=== PATIENT | female | born 1970 | race Caucasian/White ===

== ENCOUNTER → 2017-09-30 | Outpatient (CLI) | payer OTHER, MEDICARE ==
[~2017-09-30] MED LIST: CIPR500 PO; HYDACE5 PO; KEPPRA XR750 MG PO; Keppra1000 MG PO; MEDR10 PO; OXCA300 PO; PRED20 PO; PREN-16 PO; Percocet 5-3251 EACH PO; [UNRECOGNIZED DRUG - OTHER]; triliptal; vitamin k
== END | disposition home or self-care (01) ==
LOC: LAB SHORT 12:53 → LAB EV 12:53
DX: J02.9 Acute pharyngitis, unspecified (principal)
CPT/HCPCS: 87070

== ENCOUNTER 2017-10-10 19:30 | Emergency (ER) | payer OTHER, MEDICARE ==
[~2017-10-10] VITALS: Ht 162.6 cm; Wt 84.4 kg
== END 2017-10-10 20:09 | disposition left against medical advice (07) ==
LOC: ER 19:30
DX: Z53.21 Procedure and treatment not carried out due to patient leaving prior to being seen by health care provider (principal)

== ENCOUNTER → 2017-11-12 | Outpatient (CLI) | payer OTHER, MEDICARE ==
[2017-11-13 11:23] LABS: Campylobacter Sp Not Detected (NOT DETECT); Plesiomonas Shigelloides Not Detected (NOT DETECT); Salmonella Sp Not Detected (NOT DETECT)
[2017-11-13 11:24] LABS: Adenovirus F 40/41 Not Detected (NOT DETECT); Astrovirus Not Detected (NOT DETECT); Cryptosporidium Not Detected (NOT DETECT); Cyclospora Cayetanensis Not Detected (NOT DETECT); E. Coli O157 Not Detected (NOT DETECT); Entamoeba Histolytica Not Detected (NOT DETECT); Enteroaggregative E. coli-EAEC Not Detected (NOT DETECT); Enteropathogenic E. coli-EPEC Not Detected (NOT DETECT); Enterotoxigenic E. coli-ETEC Not Detected (NOT DETECT); Giardia Lamblia Not Detected (NOT DETECT); Norovirus GI/GII Not Detected (NOT DETECT); Rotavirus A Not Detected (NOT DETECT); Sapovirus Not Detected (NOT DETECT); Shiga Toxin-prod E. coli-STEC Not Detected (NOT DETECT); Shigella/Enteroin E. coli-EIEC Not Detected (NOT DETECT); Vibrio Cholerae Not Detected (NOT DETECT); Vibrio Sp Not Detected (NOT DETECT); Yersinia Enterocolitica Not Detected (NOT DETECT)
== END | disposition home or self-care (01) ==
LOC: LAB EV 19:43 → LAB SHORT 19:43
PROVIDERS: Family Medicine
DX: R19.7 Diarrhea, unspecified (principal)
CPT/HCPCS: 87507

== ENCOUNTER → 2017-12-05 | Outpatient (CLI) | payer OTHER, MEDICARE | LOC: LAB SHORT 15:57 → LAB EV 15:57 | DX: J02.9 Acute pharyngitis, unspecified (principal) | CPT/HCPCS: 87070 ==

== ENCOUNTER → 2018-01-20 | Outpatient (CLI) | payer OTHER, MEDICARE ==
[~2018-01-20] MED LIST changes: +AMOUR PO; +CHOL10002; +Hair, Skin & N1 EACH PO; +PROGESTERONE CREAM TOP; +[UNRECOGNIZED DRUG - OTHER]; +[UNRECOGNIZED DRUG - OTHER] PO
== END | disposition home or self-care (01) ==
LOC: LAB EV 18:55 → LAB SHORT 18:55
DX: R30.0 Dysuria (principal)
CPT/HCPCS: 87077; 87086; 87186

== ENCOUNTER 2018-06-16 18:56 | Emergency (ER) | payer OTHER, MEDICARE ==
[~2018-06-16] VITALS: Ht 162.6 cm; Wt 90.7 kg
[2018-06-16] MEDS ORDERED: Norco 5-325 Ta1 EACH PO (20:01)
[2018-06-16] MEDS ORDERED: Vibramycin100 MG PO (20:01)
[2018-06-21] MEDS ORDERED: CRINONE1.125 GM VAG (14:02)
[2018-06-21] MEDS ORDERED: Trileptal600 MG PO (14:02)
[2018-06-21] MEDS ORDERED: VAGIFEM10 MCG VAG (14:02)
[2018-06-21] MEDS ORDERED: Keppra1000 MG PO (14:02)
[2018-06-21] MEDS ORDERED: PROM25 PO (14:03)
[2018-06-21] MEDS ORDERED: HYDR1TAB94 PO (14:03)
[2018-06-21] MEDS ORDERED: Armour Thyroid120 MG PO (14:03)
== END 2018-06-16 20:15 | disposition home or self-care (01) ==
LOC: ER 18:56 → EDSTATUS 18:56 → ER 20:15
DX: S02.32XA Fracture of orbital floor, left side, initial encounter for closed fracture (principal); S02.2XXA Fracture of nasal bones, initial encounter for closed fracture; H11.32 Conjunctival hemorrhage, left eye; H53.2 Diplopia; R56.9 Unspecified convulsions; W01.198A Fall on same level from slipping, tripping and stumbling with subsequent striking against other object, initial encounter; Z88.8 Allergy status to other drugs, medicaments and biological substances; Z88.1 Allergy status to other antibiotic agents; Z88.0 Allergy status to penicillin; Z79.899 Other long term (current) drug therapy; E03.9 Hypothyroidism, unspecified
CPT/HCPCS: 70486; 99283

== ENCOUNTER 2018-06-22 09:46 | Day surgery (SDC) | payer OTHER, MEDICARE ==
[~2018-06-22] VITALS: Ht 162.6 cm; Wt 86.6 kg
[~2018-06-22 09:46] MED LIST changes: +Armour Thyroid120 MG PO; +CRINONE1.125 GM VAG; +HYDR1TAB94 PO; +Norco 5-325 Ta1 EACH PO; +PROM25 PO; +Trileptal600 MG PO; +VAGIFEM10 MCG VAG; +Vibramycin100 MG PO
[2018-06-22] MEDS ORDERED: DIPH50 PO (10:42)
--- NOTE | 2018-06-22 10:47 | NUR ---
06/22/18 1047 Bessy Hines PT STS ALLERGY TO ADHESIVE TAPE, HOWEVER STS THAT "IV CLEAR TAPE" IS FINE & HAS NOT CAUSED AN ISSUE IN THE PAST.
--- NOTE | 2018-06-22 13:08 | NUR ---
06/22/18 1308 Theresa Mittal ON ARRIVAL TO PACU, PT VOMITED DARK YELLOW BILE, APPROXIMATELY 30MLS. VOMITING WAS PROJECTILE. PT CONT TO C/O NAUSEA HOWEVER NO FURTHER EMESIS AT THIS TIME. PT AWAKE AND C/O HEADACHE. VSS.
--- NOTE | 2018-06-22 13:26 | NUR ---
06/22/18 1326 Theresa Mittal PT WITH FACE PAIN 03/02, RX'D WITH FENTANYL 50MCG IV. PT WITH NAUSEA, RX'D WITH REGLAN 10MG IV. VSS. CONT TO MONITOR.
== END 2018-06-22 14:51 | disposition home or self-care (01) ==
LOC: ORSCSDS 09:46
PROVIDERS: Otolaryngology
PROC: 0NSQ0ZZ Reposition Left Orbit, Open Approach (ICD-10-PCS; principal; 2018-06-22 11:15)
DX: S02.32XA Fracture of orbital floor, left side, initial encounter for closed fracture (principal); E03.9 Hypothyroidism, unspecified; G40.909 Epilepsy, unspecified, not intractable, without status epilepticus; Z79.899 Other long term (current) drug therapy
CPT/HCPCS: C1713; C1781; J0360; J1100; J2250; J2405; J2710; J2765; J3010; J7120

== ENCOUNTER → 2018-10-01 | Outpatient (CLI) | payer OTHER, MEDICARE ==
[~2018-10-01] MED LIST changes: +DIPH50 PO
[2018-10-01 13:16] LABS: BASOPHILS ABSOLUTE AUTO 0.03 K/mm3 (0.00-0.23); BASOPHILS PERCENT AUTO 1 % (0-2); EOSINOPHILS PERCENT AUTO 3 % (0-6); Hematocrit 36.8 % (33.0-51.0); Hemoglobin 12.4 g/dL (11.5-16.0); IMMATURE GRAN ABSOLUTE AUTO 0.02 K/mm3 (0.00-0.10); IMMATURE GRAN PERCENT AUTO 0 % (0-1); LYMPHOCYTES ABSOLUTE AUTO 2.05 K/mm3 (0.84-5.20); LYMPHOCYTES PERCENT AUTO 31 % (21-46); MONOCYTES ABSOLUTE AUTO 0.43 K/mm3 (0.16-1.47); MONOCYTES PERCENT AUTO 7 % (4-13); Mean Corpuscular HGB 31.2 pg (26.0-34.0); Mean Corpuscular HGB Conc 33.7 g/dL (31.5-36.5); Mean Corpuscular Volume 93 fL (80-100); Mean Platelet Volume 10.6 fL (9.1-12.4); NEUTROPHILS ABSOLUTE AUTO 3.84 K/mm3 (1.96-9.15); NEUTROPHILS PERCENT AUTO 59 % (41-73); Platelet Count 207 K/mm3 (150-400); RDW Standard Deviation 40.8 fL (35.1-46.3); Red Blood Cell Count 3.98 M/mm3 (3.80-5.20); White Blood Cell Count 6.57 K/mm3 (4.00-11.30)
[2018-10-01 14:01] LABS: Alanine Aminotransfer (ALT/SGP 20 U/L (12-78); Albumin, Blood 4.1 g/dL (3.4-5.0); Albumin/Globulin Ratio 1.4 (0.8-1.8); Alk Phos 130 U/L (40-126); Anion Gap 10 mmol/L (6-16); Aspartate Aminotrans (AST/SGOT 10 U/L (12-37); Bilirubin, Total 0.2 mg/dL (0.1-1.0); Blood Urea Nitrogen 18 mg/dL (8-24); Bun/Creatinine Ratio 23.1 (12.0-20.0); CO2, Blood 28 mmol/L (21-32); Calcium, Blood 8.7 mg/dL (8.5-10.1); Chloride, Blood 103 mmol/L (98-108); Creatinine, Blood 0.78 mg/dL (0.40-1.00); Glomerular Filtration Rate >60 (60-); Glucose, Blood 128 mg/dL (70-99); Potassium, Blood 3.9 mmol/L (3.5-5.5); Sodium, Blood 141 mmol/L (136-145); Total Protein, Blood 7.1 g/dL (6.4-8.2)
== END ==
LOC: LAB EV 13:00
PROVIDERS: Physician Assistant
DX: G43.719 Chronic migraine without aura, intractable, without status migrainosus (principal); G40.309 Generalized idiopathic epilepsy and epileptic syndromes, not intractable, without status epilepticus; Z79.899 Other long term (current) drug therapy
CPT/HCPCS: 80053; 85025

== ENCOUNTER 2018-10-06 08:15 | Emergency (ER) | payer OTHER, MEDICARE ==
[~2018-10-06] VITALS: Ht 162.6 cm; Wt 90.7 kg
[2018-10-06 08:50] LABS: BASOPHILS ABSOLUTE AUTO 0.04 K/mm3 (0.00-0.23); BASOPHILS PERCENT AUTO 0 % (0-2); EOSINOPHILS ABSOLUTE AUTO 0.11 K/mm3 (0.00-0.68); EOSINOPHILS PERCENT AUTO 1 % (0-6); Hematocrit 41.1 % (33.0-51.0); Hemoglobin 13.5 g/dL (11.5-16.0); IMMATURE GRAN ABSOLUTE AUTO 0.03 K/mm3 (0.00-0.10); IMMATURE GRAN PERCENT AUTO 0 % (0-1); LYMPHOCYTES ABSOLUTE AUTO 1.53 K/mm3 (0.84-5.20); LYMPHOCYTES PERCENT AUTO 17 % (21-46); MONOCYTES ABSOLUTE AUTO 0.65 K/mm3 (0.16-1.47); MONOCYTES PERCENT AUTO 7 % (4-13); Mean Corpuscular HGB 30.8 pg (26.0-34.0); Mean Corpuscular HGB Conc 32.8 g/dL (31.5-36.5); Mean Corpuscular Volume 94 fL (80-100); Mean Platelet Volume 10.7 fL (9.1-12.4); NEUTROPHILS ABSOLUTE AUTO 6.55 K/mm3 (1.96-9.15); NEUTROPHILS PERCENT AUTO 74 % (41-73); Platelet Count 215 K/mm3 (150-400); RDW Standard Deviation 41.7 fL (35.1-46.3); Red Blood Cell Count 4.39 M/mm3 (3.80-5.20); White Blood Cell Count 8.91 K/mm3 (4.00-11.30)
[2018-10-06 09:11] LABS: Alanine Aminotransfer (ALT/SGP 19 U/L (12-78); Albumin, Blood 3.9 g/dL (3.4-5.0); Albumin/Globulin Ratio 1.1 (0.8-1.8); Alk Phos 119 U/L (50-136); Anion Gap 10 mmol/L (6-16); Aspartate Aminotrans (AST/SGOT 4 U/L (12-37); Bilirubin, Total 0.3 mg/dL (0.1-1.0); Blood Urea Nitrogen 16 mg/dL (8-24); Bun/Creatinine Ratio 20.2 (12.0-20.0); CO2, Blood 21 mmol/L (21-32); Calcium, Blood 8.6 mg/dL (8.5-10.1); Chloride, Blood 109 mmol/L (98-108); Creatinine, Blood 0.79 mg/dL (0.40-1.00); Globulin, Blood 3.5 g/dL (2.2-4.0); Glomerular Filtration Rate >60 (60-); Glucose, Blood 111 mg/dL (70-99); Potassium, Blood 4.4 mmol/L (3.5-5.5); Sodium, Blood 140 mmol/L (136-145); Total Protein, Blood 7.4 g/dL (6.4-8.2)
[2018-10-06 09:15] LABS: Thyroid Stimulating Hormone 0.148 uIU/mL (0.360-4.800)
== END 2018-10-06 09:59 | disposition home or self-care (01) ==
LOC: ER 08:15
PROVIDERS: Physician Assistant
DX: R56.9 Unspecified convulsions (principal); S01.81XA Laceration without foreign body of other part of head, initial encounter; E03.9 Hypothyroidism, unspecified; X58.XXXA Exposure to other specified factors, initial encounter
CPT/HCPCS: 12011; 80053; 80177; 80183; 84443; 84703; 85025; 93005; 93010; 96374-59; 99284-25; J1885

== ENCOUNTER → 2019-01-22 | Outpatient (CLI) | payer OTHER, MEDICARE ==
[~2019-01-22] MED LIST changes: +AMLO10 PO; +ASPI81CH PO; +ATOR80 PO; +CLOP75 PO; +LEVSOD100 PO; +METO25ER PO
[2019-01-22 14:21] LABS: BASOPHILS ABSOLUTE AUTO 0.04 K/mm3 (0.00-0.23); BASOPHILS PERCENT AUTO 1 % (0-2); EOSINOPHILS ABSOLUTE AUTO 0.19 K/mm3 (0.00-0.68); EOSINOPHILS PERCENT AUTO 3 % (0-6); Hematocrit 39.3 % (33.0-51.0); Hemoglobin 13.3 g/dL (11.5-16.0); IMMATURE GRAN ABSOLUTE AUTO 0.03 K/mm3 (0.00-0.10); IMMATURE GRAN PERCENT AUTO 1 % (0-1); LYMPHOCYTES ABSOLUTE AUTO 2.14 K/mm3 (0.84-5.20); LYMPHOCYTES PERCENT AUTO 32 % (21-46); MONOCYTES PERCENT AUTO 8 % (4-13); Mean Corpuscular HGB 30.8 pg (26.0-34.0); Mean Corpuscular HGB Conc 33.8 g/dL (31.5-36.5); Mean Corpuscular Volume 91 fL (80-100); Mean Platelet Volume 10.9 fL (9.1-12.4); NEUTROPHILS ABSOLUTE AUTO 3.75 K/mm3 (1.96-9.15); NEUTROPHILS PERCENT AUTO 56 % (41-73); Platelet Count 218 K/mm3 (150-400); RDW Coefficient Variation 11.9 % (11.7-14.2); RDW Standard Deviation 39.2 fL (35.1-46.3); Red Blood Cell Count 4.32 M/mm3 (3.80-5.20); White Blood Cell Count 6.65 K/mm3 (4.00-11.30)
[2019-01-22 14:52] LABS: Alanine Aminotransfer (ALT/SGP 18 U/L (12-78); Albumin, Blood 3.9 g/dL (3.4-5.0); Albumin/Globulin Ratio 1.3 (0.8-1.8); Alk Phos 120 U/L (40-126); Anion Gap 12 mmol/L (6-16); Aspartate Aminotrans (AST/SGOT 10 U/L (12-37); Bilirubin, Total 0.1 mg/dL (0.1-1.0); Blood Urea Nitrogen 17 mg/dL (8-24); Bun/Creatinine Ratio 21.5 (12.0-20.0); CO2, Blood 25 mmol/L (21-32); Calcium, Blood 8.9 mg/dL (8.5-10.1); Chloride, Blood 104 mmol/L (98-108); Creatinine, Blood 0.79 mg/dL (0.40-1.00); Free Thyroxine 1.21 ng/dL (0.70-1.60); Globulin, Blood 3.1 g/dL (2.2-4.0); Glomerular Filtration Rate >60 (60-); Glucose, Blood 103 mg/dL (70-99); Potassium, Blood 4.1 mmol/L (3.5-5.5); Sodium, Blood 141 mmol/L (136-145); Thyroid Stimulating Hormone 0.047 uIU/mL (0.360-4.800)
[2019-01-22 17:59] LABS: Progesterone 17.6 ng/mL; Triiodothyronine, Free 2.36 pg/mL (2.18-3.98)
== END | disposition home or self-care (01) ==
LOC: LAB EV 14:15 → LAB SHORT 14:15
PROVIDERS: Physician Assistant
DX: E03.9 Hypothyroidism, unspecified (principal)
CPT/HCPCS: 80053; 84144; 84439; 84443; 84481; 85025

== ENCOUNTER 2019-03-08 05:43 | Day surgery (SDC) | payer OTHER, MEDICARE ==
[~2019-03-08] VITALS: Ht 162.6 cm; Wt 93.0 kg
[~2019-03-08 05:43] MED LIST changes: -AMLO10 PO; -ASPI81CH PO; -ATOR80 PO; -CLOP75 PO; -LEVSOD100 PO; -METO25ER PO
[2019-03-08] MEDS ORDERED: LEVSOD100 PO (06:38)
[2019-03-08] MEDS ORDERED: METO25ER PO (06:46)
[2019-03-08] MEDS ORDERED: ASPI81CH PO (06:46)
[2019-03-08] MEDS ORDERED: ATOR80 PO (06:47)
[2019-03-08] MEDS ORDERED: AMLO10 PO (06:47)
[2019-03-08] MEDS ORDERED: CLOP75 PO (06:47)
--- NOTE | 2019-03-08 08:14 | NUR ---
Pt arrives via recliner chair. Pt is slightly drowsey, Pt sitting up in recliner. Right radial wnl Pt with call light. Pt denies pain, SR tele. Pt on menses pad and panties on.
--- NOTE | 2019-03-08 09:25 | NUR ---
Pt states I get short of breath with the blood pressure cuff. Pt vs stable spo2 unchanged at 100%.
--- NOTE | 2019-03-08 10:05 | NUR ---
Sbar to Marsha Santiago.
--- NOTE | 2019-03-08 10:22 | NUR ---
PT TR BAND ON RIGHT WRIST HAS BEEN DEFLATED BY MAU NERI RN FOR APPROX 15 MINS. PT IS UP AD SANJEEV WITH ASSISTANCE FROM , TO GET SELF DRESSED. PREVIOUSLY DISCHARGE INSTRUCTIONS WERE REVIEWED WITH PT BY VAN COTA RN. WILL CONTINUE TO MONITOR RIGHT RADIAL SITE PRIOR TO DISCHARGE.
--- NOTE | 2019-03-08 11:00 | NUR ---
PT TR BAND REMOVED, RED CLOTH DOT DRESSING APPLIED. ARM BOARD AND SLING PLACED ON RIGHT ARM PER PT REQUEST IN ORDER TO HAVE REMINDER NOT TO USE RIGHT HAND/WRIST FOR NEXT 24-48 HOURS. IV REMOVED FROM LAC WITH CATH INTACT, PRESSURE DRESSING APPLIED. HERE TO DRIVE PT HOME, TAKEN OUT TO PRIVATE VEHICLE WITH NADN VIA W/C. RIGHT RADIAL SITE REMAINS STABLE. ENCOURAGED TO FOLLOW UP WITH PROVIDER SCHEDULED.
== END 2019-03-08 10:45 | disposition home or self-care (01) ==
LOC: MHTC 05:43
DX: I25.119 Atherosclerotic heart disease of native coronary artery with unspecified angina pectoris (principal); R94.39 Abnormal result of other cardiovascular function study; I10 Essential (primary) hypertension; E78.5 Hyperlipidemia, unspecified; G40.909 Epilepsy, unspecified, not intractable, without status epilepticus; E03.9 Hypothyroidism, unspecified; E66.9 Obesity, unspecified; Z79.899 Other long term (current) drug therapy; Z79.82 Long term (current) use of aspirin; Z88.8 Allergy status to other drugs, medicaments and biological substances; Z91.048 Other nonmedicinal substance allergy status
CPT/HCPCS: 93005; 93010; 93458; 99152; 99153; C1769; C1894; J1644; J2250; J3010; J7030; Q9967

== ENCOUNTER → 2019-05-10 | Outpatient (CLI) | payer OTHER, MEDICARE ==
[~2019-05-10] MED LIST changes: +ACIDOPHILUS1 EACH PO; +AMLO10 PO; +ASPI81CH PO; +ATOR80 PO; +CLOP75 PO; +Keppra750 MG PO; +LEVSOD100 PO; +METO25ER PO; +PROGESTERONE200 MG PO; +SYNTHROID0.2 MG PO; +[UNRECOGNIZED DRUG - OTHER] PO
[2019-05-18 09:07] LABS: CREATININE, URINE 144.9 mg/dL (Not Estab.)
== END | disposition home or self-care (01) ==
LOC: LAB SHORT 12:45 → OLS 12:45 → LAB FUT 05-05 12:35
PROVIDERS: Internal Medicine Gastroenterology
DX: R10.84 Generalized abdominal pain (principal)
CPT/HCPCS: 84110

== ENCOUNTER 2019-06-20 09:00 | Day surgery (SDC) | payer OTHER, MEDICARE ==
[~2019-06-20] VITALS: Ht 162.6 cm; Wt 91.1 kg
--- NOTE | 2019-06-20 10:15 | NUR ---
06/20/19 1015 Mercedes Meza 3 IV MISSES BY LENY 1 IN RH VAVLE 1 IN RW VALVE 1IN RW VALVE 1 GOOD IV IN LH BY ROSY PT TOW
== END 2019-06-20 11:40 | disposition home or self-care (01) ==
LOC: ORSCSDS 09:00
PROVIDERS: Internal Medicine Gastroenterology
PROC: 0DBE8ZX Excision of Large Intestine, Via Natural or Artificial Opening Endoscopic, Diagnostic (ICD-10-PCS; principal; 2019-06-20 10:45)
DX: R93.3 Abnormal findings on diagnostic imaging of other parts of digestive tract (principal); K64.8 Other hemorrhoids; K57.30 Diverticulosis of large intestine without perforation or abscess without bleeding; R10.9 Unspecified abdominal pain; E03.9 Hypothyroidism, unspecified; G40.909 Epilepsy, unspecified, not intractable, without status epilepticus; E06.3 Autoimmune thyroiditis; I10 Essential (primary) hypertension; Z79.899 Other long term (current) drug therapy
CPT/HCPCS: 88305; J2250; J2704; J7120

== ENCOUNTER → 2020-02-01 | Outpatient (CLI) | payer OTHER, MEDICARE | END | disposition home or self-care (01) | LOC: LAB SHORT 13:23 → LAB EV 13:23 | DX: T14.90XA Injury, unspecified, initial encounter (principal) | CPT/HCPCS: 87070; 87075; 87205 ==

== ENCOUNTER 2020-03-26 10:35 | Inpatient (IN) | payer OTHER, MEDICARE ==
[~2020-03-26] VITALS: Ht 172.7 cm; Wt 81.7 kg
[~2020-03-26 10:35] MED LIST changes: -Keppra750 MG PO; -PROGESTERONE200 MG PO
[2020-03-26 10:55] LABS: Calcium, Ionized (POC) 1.15 mmol/L (1.10-1.46); Chloride (POC) 106 mmol/L (98-108); Creatinine (POC) 1.1 mg/dL (0.6-1.0); Glucose (ISTAT POC) 327 mg/dL (70-99); Hemoglobin (POC) 13.6 g/dL (12.0-16.0); Potassium (POC) 3.9 mmol/L (3.5-5.5); Sodium (POC) 141 mmol/L (135-148); Total CO2 (POC) 14 mmol/L (21-32)
[2020-03-26 11:02] LABS: PCO2 Arterial 68.8 mmHg (35-45); PO2 Arterial 191 mmHg (80-100); pH Blood Arterial <6.80 (7.35-7.45)
[2020-03-26 11:03] LABS: BASOPHILS ABSOLUTE AUTO 0.07 K/mm3 (0.00-0.23); BASOPHILS PERCENT AUTO 1 % (0-2); EOSINOPHILS ABSOLUTE AUTO 0.16 K/mm3 (0.00-0.68); EOSINOPHILS PERCENT AUTO 2 % (0-6); Hemoglobin 12.8 g/dL (11.5-16.0); IMMATURE GRAN ABSOLUTE AUTO 0.68 K/mm3 (0.00-0.10); IMMATURE GRAN PERCENT AUTO 7 % (0-1); LYMPHOCYTES ABSOLUTE AUTO 6.23 K/mm3 (0.84-5.20); LYMPHOCYTES PERCENT AUTO 65 % (21-46); MONOCYTES ABSOLUTE AUTO 0.59 K/mm3 (0.16-1.47); MONOCYTES PERCENT AUTO 6 % (4-13); Mean Corpuscular HGB 31.2 pg (26.0-34.0); Mean Corpuscular HGB Conc 29.1 g/dL (31.5-36.5); Mean Corpuscular Volume 107 fL (80-100); Mean Platelet Volume 12.5 fL (9.1-12.4); NEUTROPHILS ABSOLUTE AUTO 1.86 K/mm3 (1.96-9.15); NEUTROPHILS PERCENT AUTO 19 % (41-73); NRBC ABSOLUTE 0.02 K/mm3 (0.00-0.02); NRBC Auto 0.2 /100 WBC (0.0-0.2); Platelet Count 155 K/mm3 (150-400); RDW Coefficient Variation 11.8 % (11.7-14.2); RDW Standard Deviation 46.3 fL (35.1-46.3); White Blood Cell Count 9.59 K/mm3 (4.00-11.30)
[2020-03-26 11:18] LABS: International Normalized Ratio 1.07; Prothrombin Time Results 11.4 Sec (9.7-11.5)
[2020-03-26 11:21] LABS: Ethanol (Alcohol), Blood, Med <3 mg/dL; Free Thyroxine 0.54 ng/dL (0.70-1.60); Magnesium, Blood 2.9 mg/dL (1.6-2.4); Troponin I <0.015 ng/mL (0.000-0.040)
[2020-03-26 11:22] LABS: Alanine Aminotransfer (ALT/SGP 183 U/L (12-78); Albumin, Blood 3.2 g/dL (3.4-5.0); Albumin/Globulin Ratio 1.1 (0.8-1.8); Alk Phos 141 U/L (50-136); Anion Gap 29 mmol/L (6-16); Aspartate Aminotrans (AST/SGOT 189 U/L (12-37); Bilirubin, Total 0.2 mg/dL (0.1-1.0); Blood Urea Nitrogen 15 mg/dL (8-24); Bun/Creatinine Ratio 14.6 (12.0-20.0); CO2, Blood 12 mmol/L (21-32); Calcium, Blood 9.4 mg/dL (8.5-10.1); Chloride, Blood 104 mmol/L (98-108); Creatinine, Blood 1.03 mg/dL (0.40-1.00); Globulin, Blood 2.9 g/dL (2.2-4.0); Glomerular Filtration Rate >60 (60-); Glucose, Blood 337 mg/dL (70-99); Potassium, Blood 4.1 mmol/L (3.5-5.5); Sodium, Blood 145 mmol/L (136-145); Total Protein, Blood 6.1 g/dL (6.4-8.2)
[2020-03-26] MEDS ORDERED: OXTELLAR XR600 MG PO (12:18)
[2020-03-26] MEDS ORDERED: LEVETIRACETAM750 M1 PO (12:19)
[2020-03-26] MEDS ORDERED: Armour Thyroid120 MG PO (12:20)
[2020-03-26] MEDS ORDERED: PROGESTERONE200 MG PO (12:20)
[2020-03-26 14:06] LABS: U Amphetamine Screen Not Detected; U Barbituate Screen Not Detected; U Benzodiazapine Screen Not Detected; U Buprenorphine Screen Not Detected; U Cannabinoids Screen Not Detected; U Cocaine Screen Not Detected; U Methadone Screen Not Detected; U Methamphetamine Screen Not Detected; U Opiates Screen Not Detected; U Oxycodone Screen Not Detected; U Phencyclidine Screen Not Detected; U Propoxyphene Screen Not Detected
--- NOTE | 2020-03-26 16:47 | NUR ---
Patient seen in ER for assitance with terminal withdrawl of life support. Pt medicated and ventlatory support withdrawn. Family and chaplians at bedside. Review of prn meds with phsycian and nursing. Family declining organ donation.
--- NOTE | 2020-03-26 17:04 | NUR ---
After being contacted by Elvira Pizarro, I go to ER26. I then provide emotional/spiritual support to family off and on through out the day. I assist patient's spouse Maikel think through his medical decisions, provide prayer after extubation and a calming presence to patient's children as they see their mom for the last time then help them all out to the car.
--- NOTE | 2020-03-26 18:02 | NUR ---
PHYSICIAN NOTIFIED/TIME OF THIS RN ADMITTED PT TO MEDICAL FLOOR AT 1750. PT REPOSITIONED AND DRESSED IN GOWN. PT EXHIBITED SABINE-PATEL BREATHING UPON BED TRANSFER AT 1752. PT MOTHER AND FATHER IN ROOM UPON ARRIVAL TO UNIT AND 2 OTHER FAMILY MEMBERS PRESENT IN ROOM. THIS RN LEFT ROOM FOR FAMILY PRIVACY AND RETURNED TO ROOM AT 1758. THIS RN LISTENED TO APICAL HEART AND OBSERVED NO HEARTBEAT AT 1800. PT NO LONGER BREATHING AT 1800. CHARGE NURSE NOTIFIED OF PT PASSING AT 1801. PHYSICIAN NOTIFIED OF PT ABSENCE OF HEARTBEAT AND RESPIRATIONS AT 1802. THIS RN ASKED FAMILY IF THEY NEED ANYTHING AND PROVIDED PRIVACY IN ROOM WITH PT.
--- NOTE | 2020-03-26 19:12 | NUR ---
FINAL DC NOTE PT FAMILY HAS LEFT THE ROOM. PT HEAD LOWERED IN BED. CHARGE NURSE AWAITING CALL BACK FROM . AND MOTHER'S PHONE NUMBERS GIVEN TO CHARGE NURSE.
--- NOTE | 2020-03-26 22:10 | NUR ---
[facility] HERE TO ACUTE SPECIALIST PT. FACE SHEET GIVEN.
== END 2020-03-26 18:00 | DRG 100 ==
LOC: ER 10:35 → MEDS 16:36
PROVIDERS: Emergency Medicine; ADMIT Family Medicine
PROC: 5A1935Z Respiratory Ventilation, Less than 24 Consecutive Hours (ICD-10-PCS; principal; 2020-03-26)
PROC: 0BH18EZ Insertion of Endotracheal Airway into Trachea, Via Natural or Artificial Opening Endoscopic (ICD-10-PCS; 2020-03-26)
PROC: 05H633Z Insertion of Infusion Device into Left Subclavian Vein, Percutaneous Approach (ICD-10-PCS; 2020-03-26)
DX: G40.301 Generalized idiopathic epilepsy and epileptic syndromes, not intractable, with status epilepticus (principal); G93.6 Cerebral edema; G93.1 Anoxic brain damage, not elsewhere classified; E87.2 Acidosis; Z20.828 Contact with and (suspected) exposure to other viral communicable diseases; E03.9 Hypothyroidism, unspecified; Z51.5 Encounter for palliative care; I46.2 Cardiac arrest due to underlying cardiac condition; I49.01 Ventricular fibrillation
CPT/HCPCS: 31500; 36415; 36556; 36600; 51702; 70450; 71045; 71260; 74177; 80047; 80053; 82803; 83735; 84439; 84443; 84484; 85014; 85025; 85610; 86850; 86900; 86901; 93005; 93010; 94002; 96365-59; 96366-59; 96375-59; 99291-25; C1751; G0480; J1265; J1953; J2060; J2270; Q9967; U0004